=== PATIENT | male | born 1945 | race Caucasian/White ===

== ENCOUNTER 2018-01-13 08:00 | Day surgery (SDC) | payer MEDICARE, OTHER ==
[~2018-01-13] VITALS: Ht 188 cm; Wt 110.4 kg
[~2018-01-13 08:00] MED LIST: BUPIVACAINE/PF-EPI 0.5% 1:200K ONE; SUPER BETA PROSTATE PO; herbal laxative PO; testosterone booster PO
[2018-01-13] MEDS ORDERED: KETOROLAC 30 MG/1 ML ONE (10:35)
[2018-01-13] MEDS ORDERED: PHENYLEPHRINE 10 MG/ML ONE (10:35)
[2018-01-13 14:37] VITALS: BP 132/85
[2018-01-13] MEDS ORDERED: CEFAZOLIN 1,000 MG ONE (14:39)
[2018-01-13] MEDS ORDERED: PROPOFOL 10 MG/ML, 20ML ONE (14:39)
[2018-01-13] MEDS ORDERED: DEXAMETHASONE 4 MG/ML, 1ML ONE (14:39)
[2018-01-13] MEDS ORDERED: ONDANSETRON 2MG/ML, 2ML ONE (14:39)
[2018-01-13] MEDS ORDERED: FENTANYL PF 100 MCG/2ML ONE ×2 (14:39→16:18)
[2018-01-13] MEDS ORDERED: LACTATED RINGERS 1,000 ML IV SCH (15:00)
[2018-01-13] MEDS ORDERED: MIDAZOLAM 1 MG/ML, 2ML ONE (16:17)
[2018-01-13] MEDS ORDERED: ONDANSETRON 2MG/ML, 2ML IV PRN (16:30)
[2018-01-13] MEDS ORDERED: FENTANYL PF 100 MCG/2ML IV PRN (16:30)
[2018-01-13] MEDS ORDERED: PROMETHAZINE 25 MG/ML, 1ML IV PRN (16:30)
[2018-01-13] MEDS ORDERED: DIAZEPAM 5 MG/ML, 2ML IVPush PRN (16:30)
[2018-01-13] MEDS ORDERED: OXYcodone 5 MG/5 ML ORAL.SOL UDC PO PRN (16:30)
[2018-01-13] MEDS ORDERED: ONDANSETRON ODT 8 MG PO PRN (16:30)
[2018-01-13] MEDS ORDERED: HYDROmorphone 2 MG/ML, 1ML IVPush PRN (16:30)
[2018-01-13] MEDS ORDERED: MEPERIDINE/PF 25MG/0.5ML IVPush PRN (16:30)
[2018-01-13] MEDS ORDERED: ACETAMINOPHEN 325 MG TABLET PO PRN (16:30)
[2018-01-13] MEDS ORDERED: OXYcodone 5 MG/5 ML ORAL.SOL UDC ONE (17:19)
== END 2018-01-13 18:25 | disposition home or self-care (01) ==
LOC: OR 08:00
PROVIDERS: ATTEND Surgery
DX: C43.61 Malignant melanoma of right upper limb, including shoulder (principal); M79.89 Other specified soft tissue disorders; F10.21 Alcohol dependence, in remission; Z86.19 Personal history of other infectious and parasitic diseases; Z90.49 Acquired absence of other specified parts of digestive tract; Z98.890 Other specified postprocedural states; Z79.899 Other long term (current) drug therapy; Z87.891 Personal history of nicotine dependence; Z91.030 Bee allergy status
CPT/HCPCS: 24073; 88307; J0690; J1100; J1885; J2250; J2370; J2405; J2704; J3010; J7120